=== PATIENT | female | born 1960 | race Caucasian/White ===

== ENCOUNTER 2018-10-18 18:00 | Inpatient (IN) | payer BC, MEDICARE, OTHER ==
[~2018-10-18] VITALS: Ht 157.5 cm; Wt 71.2 kg
--- NOTE | 2018-10-18 19:00 | NUR ---
Report received from MARIO ALBERTO England. Resting in bed with family at bedside. Denies needs at this time.
--- NOTE | 2018-10-18 19:45 | NUR ---
Resting in bed. Assessment complete. Rash present bilateral leg legs. Bruising to right buttock. Lungs clear. Bilateral lower leg edema +3. Pulses strong. Alert and orientated. Denies pain at this time. Daughters and at bedside. Orientated patient and family to medical floor and hospital. denies needs at this time. All questions answered. Call light in reach.
[2018-10-18 19:46] VITALS: BP 105/66; PULSE 97; TEMP 98
[2018-10-18 19:48] VITALS: BP 105/66; PULSE 97; TEMP 98
[2018-10-18] MEDS ORDERED: ZANTAC 150150 MG (20:19)
[2018-10-18] MEDS ORDERED: ZANTAC 150MG T150 MG PO (20:20)
[2018-10-18] MEDS ORDERED: LANTUS100 U/ML SQ (20:21)
[2018-10-18] MEDS ORDERED: DECADRON 4MG TAB4 MG PO (20:22)
[2018-10-18] MEDS ORDERED: LINZESS145CAP PO (20:23)
[2018-10-18] MEDS ORDERED: NOVOLOG 100U100 U/M1 SQ (20:23)
[2018-10-18] MEDS ORDERED: REGLAN 10MG10 MG/TAB PO (20:24)
[2018-10-18] MEDS ORDERED: MULTI VITAMINS1 TAB PO (20:25)
[2018-10-18] MEDS ORDERED: ZOFRAN 4MG T4 MG/TAB PO (20:26)
[2018-10-18] MEDS ORDERED: PERCOCET 325 MG1 TAB PO (20:27)
[2018-10-18] MEDS ORDERED: AMBIEN 10MG10 MG PO (20:28)
[2018-10-18] MEDS ORDERED: VALIUM 2MG T2 MG/TAB PO (20:28)
[2018-10-18] MEDS ORDERED: ANTACID500 M1 PO (20:29)
[2018-10-18] MEDS ORDERED: LIPITOR20 MG PO (20:29)
--- NOTE | 2018-10-18 22:00 | NUR ---
Patient up to bedside commode several times to urinate. Reports uncomfortable. Assisted patient into position of comfort. Daughters Massiel and Liss at bedside. Call light in reach. Will monitor.
[2018-10-18 22:20] LABS: HEMATOCRIT 42.4 % (37.0-47.0); MEAN CELL VOLUME 91 fl (80.0-100.0); MEAN CORPUSCULAR HEMOGLOBIN 30 pg (27.0-31.0); MEAN CORPUSCULAR HGB CONC 33 g/dl (33.0-37.0); MEAN PLATELET VOLUME 11.2 fl (7.4-10.4); PLATELET COUNT 75 K/mm3 (130-400); RED BLOOD COUNT 4.68 M/mm3 (4.10-5.30); REDCELL DISTRIBUTION WIDTH-CV 18.4 % (11.5-14.5)
[2018-10-18 22:30] LABS: ALANINE AMINOTRANSFERASE 103 U/L (9-52); ALBUMIN 2.9 gm/dL (3.5-5.0); ALKALINE PHOSPHATASE 462 U/L (50-136); ANION GAP 6 mmol/L (7-16); AST,SGOT 285 U/L (15-37); BILIRUBIN,TOTAL 4.2 mg/dL (0.0-1.0); BLOOD UREA NITROGEN 18 mg/dL (7-17); CALCIUM 7.4 mg/dL (8.4-10.2); CARBON DIOXIDE 25 mmol/L (22-30); CHLORIDE 105 mmol/L (98-107); CREATININE, serum 0.53 mg/dL (0.52-1.25); GLUCOSE 240 mg/dL (74-106); MAGNESIUM 1.8 mg/dL (1.6-2.3); PHOSPHOROUS 1.8 mg/dL (2.5-4.5); POTASSIUM 4.1 mmol/L (3.4-5.0); SODIUM 136 mmol/L (137-145); TOTAL PROTEIN 6.1 gm/dL (6.4-8.2)
[2018-10-18 22:32] LABS: ANISOCYTOSIS 1+; BAND 3 % (0-10); LYMPHOCYTE 10 % (20.0-51.0); NEUTROPHILS 86 % (42.0-75.2); PLATELET ESTIMATE DECREASED (NORMAL)
[2018-10-18 23:54] VITALS: BP 120/71; PULSE 99; TEMP 97.4
--- NOTE | 2018-10-19 00:30 | NUR ---
Per Richa, give patient PRN percocet to aide with leg pain along with decadron after patient eats chicken noodle soup. Patient ate at 0010. Provided medications. Denies other needs. Call light in reach.
--- NOTE | 2018-10-19 00:45 | NUR ---
Daughter reports "she will not stay still in bed." States patient is taking covers, SCD, and pillows "on and off." Requesting to sit on side of bed. Sent ACCOUNTING ADVISORY SERVICES MANAGER in room to assist patient to side of bed. ACCOUNTING ADVISORY SERVICES MANAGER reports patient wants to get up and walk. Educated up with unsteady gait at this time would be unsafe to walk halls. Offered patient to sit in recliner. Patient agrees. In recliner, covered and reports she is comfortable. Denies other needs. Call light in reach. Daughters at bedside. Will monitor.
[2018-10-19 00:52] LABS: TROPONIN-I < 0.012 ng/mL (0.000-0.034)
[2018-10-19 02:18] LABS: PARTIAL THROMBOPLASTIN TIME 34.6 SECONDS (26.0-37.0)
[2018-10-19 02:26] LABS: INR 2.6 (0.8-3.0); PROTHROMBIN TIME 29.1 SECONDS (9.7-12.8)
--- NOTE | 2018-10-19 04:35 | NUR ---
Up to bedside commode and returned to bed. Reports pain in bilateral lower legs. Repositioned for comfort. Denies other needs at this time. Call light in reach.
[2018-10-19 04:39] VITALS: BP 118/73; PULSE 100; TEMP 97.5
--- NOTE | 2018-10-19 06:14 | NUR ---
Richa in room to speak with patient and family regarding lab results. Deny needs at this time. Call light in reach. Will monitor.
[2018-10-19 06:56] VITALS: BP 100/70; PULSE 92; TEMP 98.3
--- NOTE | 2018-10-19 07:46 | NUR ---
PATIENT ASSESSMENT COMPLETED. PO PAIN MEDICATION PROVIDED PER HER REQUEST. DENIES OTHER NEEDS AT THIS TIME.
--- NOTE | 2018-10-19 09:15 | NUR ---
IVF DCD PER DOCTOR ORDERS
[2018-10-19 10:49] VITALS: BP 118/71; PULSE 98; TEMP 98.2
[2018-10-19 10:56] LABS: BASO % 0.1 % (0.0-2.0); EOS # 0.1 (0.0-0.7); EOS % 1.2 % (0-4.0); GRAN # 6.4 (1.4-6.5); GRAN % 85.2 % (42.2-75.2); HEMATOCRIT 40.3 % (37.0-47.0); HEMOGLOBIN 13.6 g/dl (12.5-16.0); LYMPH # 0.5 (1.2-3.4); LYMPH % 6.7 % (20.0-51.0); MEAN CELL VOLUME 89 fl (80.0-100.0); MEAN CORPUSCULAR HEMOGLOBIN 30 pg (27.0-31.0); MEAN CORPUSCULAR HGB CONC 34 g/dl (33.0-37.0); MEAN PLATELET VOLUME 11.5 fl (7.4-10.4); MONO # 0.5 (0.1-0.6); MONO % 6.4 % (1.7-9.3); PLATELET COUNT 74 K/mm3 (130-400); RED BLOOD COUNT 4.55 M/mm3 (4.10-5.30); REDCELL DISTRIBUTION WIDTH-CV 18.5 % (11.5-14.5)
--- NOTE | 2018-10-19 13:08 | NUR ---
Preliminary Plan: Possible Placement at 1.[facility], 2. [facility] with hospice options. SW met with pt and spouse Cortez about options for care. Cortez contact . Pt pref name: Cheryl. Pt reports that she needs to think about the options available and is hesitant to go into a facility at this time. PT requested brochure and resource to the placement. Pt indicated that her and spouse are concerned with insurance and coverage. PT reports consult with oncology Dr. Sánchez 10/[address] Konrad Wu. Pt indicated that there is no DPOA assigned and has two children in [facility] and one son local and her . Action: SW gave pt and spouse placement information, offered cancer support group to spouse (dcl). Educated palliative options. Made referral to JS in Finance for assistance in medicaid. Awaiting family decision after consult. SW will continue to follow care to initiate action.
--- NOTE | 2018-10-19 13:30 | NUR ---
INEZ MULLIGAN WAS PROVIDED FOR COMPLAINS OF NAUSEA. CONTINUES TO BE UP AND DOWN TO THE CHAIR. IS VERY RESTLESS.
--- NOTE | 2018-10-19 14:45 | NUR ---
PATIENT REQUESTED PAIN MEDICATION THIS WAS PROVIDED. SHE IS VERY UNCOMFORTABLE AND IS UP AND DOWN TO THE CHAIR WITH TWO ASSIST. SHE IS VERY WEAK AND STANDS UP STRONG AND THEN STARTS TO BOUNCE WHILE TRYING TO MOVE.
--- NOTE | 2018-10-19 15:08 | NUR ---
NOTIFIED PACO OF PATIENT NAUSEA. NEW ORDER RECIEVED
[2018-10-19 15:31] VITALS: BP 111/56; PULSE 96; TEMP 98.8
--- NOTE | 2018-10-19 16:02 | NUR ---
PATIENT SLEEPING IN BED. 2 DAUGHTERS AT BEDSIDE. NO SIGNS OF DISTRESS. BED ALARM ON.
--- NOTE | 2018-10-19 16:45 | NUR ---
PATIENT IS AWAKE IN BED. UP TO THE CHAIR BY 2 ASSIST.
--- NOTE | 2018-10-19 18:00 | NUR ---
PATIENT IS ASSIST UP TO CHAIR. DAUGHTERS ARE AT BEDSIDE. THE PATIENT IS DENYING ANY NAUSEA OR PAIN MEDICATION. ONE OF THE DAUGHTERS HAS CAME OUT TO THE DESK REQUESTING FOR US TO GIVE HER MOM SOME PAIN MEDICATION. PATIENT SMILES AND IS UP IN THE CHAIR. SHE IS FIDGITY IN THE CHAIR BUT DENIES NEEDS. ONE OF THE DAUGHTERS WAS GOING TO GO OUT AND GET SOME FOOD FOR EVERYONE MOM WANTED SOME ICE CREAM FROM [employer].
--- NOTE | 2018-10-19 19:20 | NUR ---
Report received from Azul LLANES. Resting in recliner. Repositioned. Denies other needs. Call light in reach.
[2018-10-19 19:58] VITALS: BP 122/79; PULSE 113; TEMP 97.3
--- NOTE | 2018-10-19 20:14 | NUR ---
Up to bedside commode and returned to recliner. Assessment complete. Lungs clear. Bilateral lower leg edema +3. Pulses diminished in lower legs. Strong in radial. Denies pain. Denies other needs at this time. Call light in reach. Daughters x3 at bedside.
--- NOTE | 2018-10-19 20:45 | NUR ---
Assisted patient to bed. Denies needs. Reports comfortable. Call light in reach. Bed alarm in place.
--- NOTE | 2018-10-19 21:30 | NUR ---
Bed alarm sounding. Upon arrival in room patient sitting on side of bed with 3 daughters surrounding patient. Patient states "I just want a drink of water and to pee but they will not let me." Assisted patient to bedside commode and provided water. Daughter Liss pulled this nurse outside of room door, BAGGAGE HANDLING SUPERVISOR left with patient. Daughter states mother is trying to get out of bed and staff are not responding fast enough to their needs. Educated daughter staff is responding to bed alarm as quickly as possible. Daughter states when patient tries to get out of bed it is "scary and we just do know what to do bedside block her in." Educated on ways to divert patient wanting to get up while waiting for staff. Patient returned to bed. Bed alarm in place. x3 daughters at bedside at this time. Call light in reach.
--- NOTE | 2018-10-19 23:06 | NUR ---
Daughters report patient is "restless" wants to move around. Offered wheelchair to be escorted around 3rd floor by daughters. Patient states "Yes I would enjoy that." Educated daughters to please stay on third floor, voiced understanding.
--- NOTE | 2018-10-19 23:20 | NUR ---
Daughter contacted staff. Patient in hallway vomiting. Returned to room. Provided zofran. Percocet pill recently given not present in emesis. Patient would like to remain in wheelchair to try to move around in hallways after a while. Denies needs at this time. Call light in reach.
--- NOTE | 2018-10-20 01:08 | NUR ---
Up to bedside commode and returned to bed. Denies needs at this time. Call light in reach.
--- NOTE | 2018-10-20 01:55 | NUR ---
OIL WELL SERVICE UNIT OPERATOR reports patient sleep. Skipped vital signs at this time. Will take when patient wakes back up. Son at bedside.
--- NOTE | 2018-10-20 04:09 | NUR ---
Resting in bed asleep with son at bedside. VS skipped at this time. Will take when patient awake. Call light in reach.
[2018-10-20 05:50] VITALS: BP 129/92; PULSE 105; TEMP 97.6
[2018-10-20 07:10] VITALS: BP 103/59; PULSE 104; TEMP 96
--- NOTE | 2018-10-20 08:54 | NUR ---
Pt assessment complete. Pt is laying in bed upon entry, she is A/O but has intermittent impulsive behavior. Continues to want to get up. Redirection provided. Pt has two daughters and son at bedside, discussion with daughters about giving patient space when resting well and attempt to redirect when agitation sets in. Discussion with daughter about having Keara Cabello speak with them as family is requesting to keep the patient comfortable and would like to discuss pain management. Daughter also requesting to speak with social work about resources for the family for support as they went through this with their father. Karissa notified. Pt currently resting comfortably, bilateral legs elevated on pillows. They deny further needs, call light within reach, bed alarm in place.
--- NOTE | 2018-10-20 09:15 | NUR ---
Pt's family currently refusing lab draw as patient is sleeping. Will request to have lab draws later on in day.
--- NOTE | 2018-10-20 09:24 | NUR ---
SPoke with daughters who report that pt is very tired and sleeping. Request that I return later on to discuss options with family and clarify goals of coare.
--- NOTE | 2018-10-20 10:52 | NUR ---
Pt sleeping at this time. and two daughters at bedside will continue to monitor.
[2018-10-20 11:14] VITALS: BP 111/71; PULSE 117; TEMP 97.5
--- NOTE | 2018-10-20 11:28 | NUR ---
Initial visit; Patient resting, Patient's family thanked Regional Retail Sales Manager for stopping by, offering spiritual care and keeping them in her prayers.
--- NOTE | 2018-10-20 11:31 | NUR ---
Pt continues to have pain to BLE, PRN pain medication administered. Pt sitting in wheelchair, going to go for a walk d/t agitation. Keara Cabello in to see patient and family at this time.
--- NOTE | 2018-10-20 12:04 | NUR ---
Pt's family wheeled patient around hallways, pt stating she is ready to go back to bed. Lunch at bedside.
--- NOTE | 2018-10-20 12:34 | NUR ---
Pt resting comfortably, family at bedside. Lunch at bedside. Will continue to monitor.
--- NOTE | 2018-10-20 14:29 | NUR ---
Lab unable to draw blood, tech states there is no one else that will poke the patient and the patient is agitated. JAYSHREE Merchant notified.
[2018-10-20 15:18] VITALS: BP 122/77; PULSE 106; TEMP 97
--- NOTE | 2018-10-20 15:29 | NUR ---
KAI collaborated with palliative care nurse, Keara. The patient's family is interested in hospice services for the patient and would prefer placement at [facility]. A referral was faxed to [facility]. [facility] declines the patient. The patient's informed Keara that he is going to contact the patient's PCP, Dr. Bundy, who is also their family friend on his recommendations. KAI to continue to follow.
--- NOTE | 2018-10-20 15:31 | NUR ---
Have met with and children at bedside today at various times. Pt is not able to verbalize her thoughts to me and does not seem to be understanding what she is being asked. There is not DPOA-HC. Per family, pt should now be a do not resuscitate, as she would not want to be like this. This was communicated to Shonda MARTELL. We are still waiting for facilities that the family would like to poursue. [facility] will not accept her. We will follow up with family again tomorrow.
--- NOTE | 2018-10-20 18:45 | NUR ---
Pt rested well through the day, intermittent confusion and continued to be impulsive. PRN pain medications administered. Pt assisted to the wheelchair and wheeled around halls several times. No N/V through the day. No diarrhea. Incontinent cares provided. Family at bedside will continue to monitor.
--- NOTE | 2018-10-20 19:11 | NUR ---
Pt agitated after getting back into bed from cammode. PRN pain medication administered. Pt stating I have my own Oxycodone, family denies having any pain medications in the room. Pt assisted with administration of med. Pericare and linen change provided. Call light within reach, bed alarm in place. Family at bedside.
[2018-10-20 22:10] VITALS: BP 130/77; PULSE 96; TEMP 97.4
--- NOTE | 2018-10-20 22:50 | NUR ---
Resting in bed with daughters at bedside. Assessment complete. Lungs clear. Generalized edema +2. Lower leg edema +3. Presents drowsy and unable to awake long enough to take medication. Arouses to touch for short amount of time. States "need to pee." Able to stand at bedside, unsteady. Assisted patient back to bed. Attempted bedpan, pushes staff hands away. Unable to answer questions. Pupils 5mm, very sluggish to light. Generalized shaking when uncovered, resolved with blankets. Daughters at bedside. Voiced concerns with MEGAN Emanuel, continue to monitor patient, no new orders at this time.
--- NOTE | 2018-10-20 23:45 | NUR ---
Up to bedside commode x2 max assist and returned to bed. Family denies needs. Call light in reach.
[2018-10-20 23:52] VITALS: BP 112/71; PULSE 97; TEMP 97.7
--- NOTE | 2018-10-21 00:45 | NUR ---
Family states patient would like to use restroom. Educated family and patient due to safety concerns with difficulty transferring, bed magallanes would be best choice at this time. Patient assisted to bed magallanes. Unable to urinate. Requests to be moved off bed magallanes. Assisted patient off and into a comfortable position. Denies needs. Call light in reach.
--- NOTE | 2018-10-21 03:02 | NUR ---
Patient reporting pain, restless in bed, kicking legs. Provided patient with PRN percocet and repositioned. Denies needs. Daughters at bedside. Bed alarm on. Will monitor.
--- NOTE | 2018-10-21 03:57 | NUR ---
Resting in bed asleep. Breathing 12 times per minute. Will monitor.
--- NOTE | 2018-10-21 04:36 | NUR ---
Resting in bed asleep. Daughters at bedside.
[2018-10-21 06:16] VITALS: BP 124/79; PULSE 100; TEMP 96.5
[2018-10-21 07:31] VITALS: BP 114/70; PULSE 105; TEMP 97.3
--- NOTE | 2018-10-21 08:00 | NUR ---
Pt assessment complete. Pt is laying in bed upon entry, pt very restless, attempted to reposition. Pt does not reply when asked if in pain, attempted to give patient a warm pack. Pt able to take pills with applesauce, with chewing them. Small amount of coughing with sips of thin liquids. Daughter reports patient has breakfast on the way. Deny further needs. Call light within reach.
--- NOTE | 2018-10-21 09:29 | NUR ---
Pt's daughter called nurse in again to state patient is trying to pull her brief off. Explained to the daughter that linen change and pericare will be provided if patient does get brief off. Pt's daughter states that patient has been hitting at her. Pt still restless sitting up in bed. Will continue to monitor.
--- NOTE | 2018-10-21 11:19 | NUR ---
Pt stood up on side of bed several times with PT. Fentanyl patch administered to L deltoid. Pt resting comfortably, will continue to monitor.
--- NOTE | 2018-10-21 11:27 | NUR ---
spent a period of time with Cheryl and her daughter. Cheryl is experiencing periods of restlessness followed by periods of rest. She is still trying to get out of bed but even with PT assist x2 was only baljinder to stand at bedside for brief periods and then had to be asisted to sit again withi much support. Talked with daughter in the room about redirection from getting out of bed, medication adjustments were discussed with Ramiro,pharmacist in room, and possible transfer to another facility for ongoing hospice care. Much support provided.
--- NOTE | 2018-10-21 12:49 | NUR ---
Pt assisted into the wheelchair, pushing her in hallways. POC discussed with family who verbalize understanding. Bed linens changed.
[2018-10-21 13:46] VITALS: BP 103/46; PULSE 104; TEMP 97.5
--- NOTE | 2018-10-21 15:53 | NUR ---
Family considering transfer to [facility]. I spoke with eHather at [facility] and faxed information to them. Family would still like to talk amoung themselves and then we will set up meeting once they reach final decision. Support provided.
[2018-10-21 16:02] VITALS: BP 114/66; PULSE 117; TEMP 94.8
--- NOTE | 2018-10-21 19:27 | NUR ---
Pt continued to be restless, pt assisted to wheelchair and repositioned several times through the shift. POC discussed with family several times. Bed alarm in place, call light within reach.
[2018-10-21 20:48] VITALS: BP 131/74; PULSE 119; TEMP 96.9
--- NOTE | 2018-10-21 21:33 | NUR ---
In bed with daughters at bedside. Assessment complete. Lungs clear. Generalized edema +2, lower leg edema +3. ABD firm. Pt restless and incontinent. Care provided. Repositioned for comfort. Bed alarm in place. Call light in reach.
--- NOTE | 2018-10-22 00:10 | NUR ---
Mills yelling from nurses station, "Get off of me, Help." Upon arrival in room daughters sitting on either side of bed next to patient. Pt removed gown and making continous movements with hands and legs into the air. Daughters asked to step away from patient. Staff assisted patient to repositioned. Provided warm blanket. Daughters request patient have "something to help her sleep." Will notify MEGAN Emanuel.
[2018-10-22 00:55] VITALS: BP 100/75; PULSE 108; TEMP 96.6
--- NOTE | 2018-10-22 02:45 | NUR ---
Daughter came and requested staff to come into room. "I think mom I having a seizure." Carlos and this nurse assessed patient. Patient does not appear to have seizure symptoms. Daughters described symptoms as inability to swallow correctly. Head of bed raised. Has sore throat. General discomfort and restlessness. Patient removed gown and does not want back on. Provided PRN roxicodone to relieve discomfort. Will monitor.
--- NOTE | 2018-10-22 04:35 | NUR ---
Resting in bed. Daughters at bedside.
--- NOTE | 2018-10-22 06:21 | NUR ---
Throughout night patient restless, sleeping off and on. Repositioned several times. Daughters x3 at bedside throughout night. Provided PRN dose of Roxicodone. Did not improve restlessness. Daughters interested in starting comfort cares, stated they will talk with hospitalist this AM. No gown on patient, covered with blanket. Pt not comfortable in gown. Resting in bed this AM. Repositioned by staff. Call light in reach. Bed alarm in place.
[2018-10-22 07:26] VITALS: BP 115/72; PULSE 121; TEMP 98.1
--- NOTE | 2018-10-22 07:35 | NUR ---
report from Ginny LLANES.
--- NOTE | 2018-10-22 09:08 | NUR ---
The patient's family is considering hospice at [facility]. Palliative Care Nurse, Keara, contacted and faxed a referral to Heather at [facility]. An APS worker, Deanna Hooker ([facility]), approached SW and informed that there was a report made on the patient. Deanna requests that SW inform her of when and where the patient goes to upon discharge. SW to continue to follow. Deanna Hooker, WILVER ph#[phone] ext.[phone]
--- NOTE | 2018-10-22 10:14 | NUR ---
After talking with daughters in the room this morning and their contact with Cortez, I did go ahead and request that Heather from [facility] contact Cortez to initiate contact and pursue transfer today.. [employer] has indicated that this is pt's last covered day. Pt seemed quite anxious this am and her daughters were continually trying to get her up, help her move, get her out of bed and seem to be quite verbally stimulating to her. Samara LENTZ was contacted and one time order for ativan 0.5mg was given in liquid form. Idid ask the daughters to step outside to continue their conversation and I stayed with pt during that time. After about 45 minutes, pt was able to rest, still having some restlessness but much more relaxed than before. Cortez reports upon his arrival that he will be going over to [facility] to talk with Janse there. He had already spoken with Janes earlier this morning. Fan was provided for pt comfort.
--- NOTE | 2018-10-22 11:17 | NUR ---
PT TO GO TO HOSPICE TODAY. COMFORT CARES INITIATED,. KYMBERLY COLEMAN RN ASSISTING WITH FAMILY AND PATIENT.
[2018-10-22] MEDS ORDERED: TRANSDERM-0.5 MG/21 TD (11:47)
[2018-10-22] MEDS ORDERED: FENTANYL 50MCG TD (12:34)
[2018-10-22] MEDS ORDERED: OXYCODONE H5 MG/5 ML PO (12:34)
[2018-10-22] MEDS ORDERED: ZOFRAN ODT4 MG PO (13:19)
[2018-10-22] MEDS ORDERED: DULCOLAX S10 MG/SUPP RC (13:23)
[2018-10-22] MEDS ORDERED: COLACE LIQUI10 MG/ML PO (13:24)
[2018-10-22 13:30] VITALS: BP 115/72; PULSE 121; TEMP 98.1
--- NOTE | 2018-10-22 13:35 | NUR ---
[facility] is able to accept the patient. The patient is to discharge today, 10/22, to [facility]. Transportation was set for 1430, via [facility]. KAI informed the patient's daughter, nurse, and [facility]. They were all in agreeance. KAI also presented and explained the IM form to the patient's daughter. The patient's daughter verbalized understanding, signed, and she was provided a copy. KAI attempted to contact WILVER Cortez, with APS to inform of the patient's discharge. KAI left a voicemail. No additional needs at this time.
--- NOTE | 2018-10-22 14:01 | NUR ---
Spoke with , Cortez after visiting the [facility]. They were very pleased with their experience, have selected a room, and are aware of plan to transfer around 1430 today. support oprovided.
--- NOTE | 2018-10-22 14:38 | NUR ---
Pt discharged to [facility] per EMS. Support provided to family.
--- NOTE | 2018-10-22 15:05 | NUR ---
PT TRANSFERED TO HOSPICE VIA EMS AT 1435.
== END 2018-10-22 15:06 | disposition hospice, inpatient (51) | DRG 597 ==
LOC: MEDICAL 18:00
PROVIDERS: Nurse Practitioner Family; ADMIT Internal Medicine
DX: C50.811 Malignant neoplasm of overlapping sites of right female breast (principal); E43 Unspecified severe protein-calorie malnutrition; G93.41 Metabolic encephalopathy; K72.00 Acute and subacute hepatic failure without coma; C79.31 Secondary malignant neoplasm of brain; C79.51 Secondary malignant neoplasm of bone; C78.7 Secondary malignant neoplasm of liver and intrahepatic bile duct; J90 Pleural effusion, not elsewhere classified; Z51.5 Encounter for palliative care; Z66 Do not resuscitate; G13.1 Other systemic atrophy primarily affecting central nervous system in neoplastic disease; Z23 Encounter for immunization; E11.9 Type 2 diabetes mellitus without complications; E78.5 Hyperlipidemia, unspecified; Z87.891 Personal history of nicotine dependence; Z68.33 Body mass index [BMI] 33.0-33.9, adult; E83.39 Other disorders of phosphorus metabolism; D69.6 Thrombocytopenia, unspecified
CPT/HCPCS: 99223-AI; 99232-AI; 99233-AI; 99239; J1815; J2405; J7030; J7050; J8540